=== PATIENT | female | born 1985 | race Caucasian/White ===

== ENCOUNTER 2017-01-13 20:59 | Emergency (ER) | payer MEDICAID ==
[2017-01-13 21:40] VITALS: BP 118/86
[2017-01-13] MEDS ORDERED: FAMOTIDINE 20 MG TABLET PO ONE (22:14)
[2017-01-13] MEDS ORDERED: DIPHENHYDRAMINE HCL 25 MG CAPSULE PO ONE (22:14)
--- NOTE | 2017-01-13 22:20 | ER Document Report ---
HPI - HPI Patient complains to provider of: rash Pain Level: 3 Context: Patient is a 31-year-old female that comes emergency department for chief complaint of a red itchy area over the top of her right foot, she states she was stung by a bee almost 1 week ago, she has absentmindedly scratch the area, today the area became increasingly itchy and uncomfortable. She denies pain to the area, she denies any other areas of rash, swelling, she denies difficulty breathing, she denies any other symptoms. She takes no daily medications. - CARDIOVASCULAR Cardiovascular: DENIES: Chest pain - DERM Skin Color: Normal Past Medical History - General Information source: Patient - Social History Smoking Status: Never Smoker Frequency of alcohol use: None Drug Abuse: None Lives with: Family Family History: Reviewed & Not Pertinent - Medical History Medical History: Negative Renal/ Medical History: Denies: Hx Peritoneal Dialysis Past Surgical History: Reports: Hx Hysterectomy Vertical Provider Document - CONSTITUTIONAL General Appearance: WD/WN, No Apparent Distress - HEENT HEENT: Atraumatic, Normal ENT Exam, Normocephalic - NECK Neck: Normal Inspection - RESPIRATORY Respiratory: Breath Sounds Normal, No Respiratory Distress. negative: Wheezing O2 Sat by Pulse Oximetry: 99 - CARDIOVASCULAR Cardiovascular: Regular Rate, Regular Rhythm - GI/ABDOMEN Gastrointestinal: Abdomen Soft, Abdomen Non-Tender - BACK Back: Normal Inspection - DERM Integumentary: Rash - There is an erythematous area over the dorsal aspect of the right foot, mild warmth, no induration, fluctuance, no tenderness, normal skin examination otherwise, normal lower extremity exam otherwise Course - Re-evaluation Re-evalutation: There is some erythema over the dorsal right foot over where the patient states she was stung by the bee, no crusting, no significant erythema, tenderness, induration, fluctuance, or other abnormality suggesting infection. Appears to be a localized inflammatory response. Treating accordingly. Discussed expectations, treatment, return precautions. Patient states understanding and agreement. - Vital Signs Vital signs: Temp Pulse Resp BP Pulse Ox 98.2 F 16 L 99 H 118/86 H 99 01/13/17 21:36 01/13/17 21:36 01/13/17 21:36 01/13/17 21:36 01/13/17 21:36 Discharge - Discharge Clinical Impression: Bee sting Qualifiers: Encounter type: initial encounter Injury intent: accidental or unintentional Qualified Code(s): T63.441A - Toxic effect of venom of bees, accidental ( unintentional), initial encounter Condition: Stable Disposition: HOME, SELF-CARE Additional Instructions: Exam is consistent with a local inflammatory response to the bee sting, no signs of infection on exam at this time, recommendation is to take both the cetirizine and famotidine as prescribed daily for 1 week. Apply topical hydrocortisone cream as prescribed as well. Follow-up with primary care. Return to emergency department for any concerning or worsening symptoms including hardening of the area, spreading redness, fever, swelling, or any other concerning symptoms. Prescriptions: Cetirizine HCl [Zyrtec 10 mg Tablet] 1 tab PO DAILY #30 tablet Famotidine [Pepcid 20 mg Tablet] 20 mg PO DAILY #12 tablet Hydrocortisone 28 gm TP ASDIR PRN #1 oint...g. PRN Reason:
== END 2017-01-13 22:28 | disposition home or self-care (01) ==
LOC: ER 20:59
DX: T63.441A Toxic effect of venom of bees, accidental (unintentional), initial encounter (principal); R21 Rash and other nonspecific skin eruption
CPT/HCPCS: 99282; J3490 ×2